=== PATIENT | female | born 1945 | race Caucasian/White ===

== ENCOUNTER 2017-01-29 01:17 | Emergency (ER) | payer MEDICARE, MEDICAID ==
[~2017-01-29] VITALS: Ht 160 cm; Wt 75.0 kg
[~2017-01-29 01:17] MED LIST: AMLO5TAB2 PO; HYDR-4003 PO; HYDR25SU10 RC; HYDR25TA4 PO; LOPE2CAP PO; METO-272 PO; OMEP20CA11 PO; SIMV20TA4 PO; VALS80TA2 PO
[2017-01-29 01:29] VITALS: BP 170/70; PULSE 83; RESP 24; O2SAT 100
--- NOTE | 2017-01-29 01:38 | ED.REPORT ---
HPI-General Illness Date of Service Jan 29, 2017 ED Provider: Codey Romo MD A 72 year old female with a history of hypertension presents to the ED complaining of "burning" left-sided abdominal pain. The pain began several days ago and radiates into her back. She has been seen twice previously for these symptoms. The pt admits to nausea denies productive cough. Nursing Notes Stated Complaint: LEFT SIDED ABDOMINAL PAIN Chief Complaint: Chest Pain Nursing Notes Reviewed: Yes Allergies: Coded Allergies: ibuprofen (Verified Allergy, Intermediate, HIVES, 01/29/17) Scheduled Amlodipine (Amlodipine) 5 Mg Tablet 5 MG PO DAILY Hydrochlorothiazide (Hydrochlorothiazide) 25 Mg Tablet 25 MG PO DAILY Hydrocortisone Acetate (Anucort-Hc) 25 Mg Supp.rect 25 MG RC DAILY Loperamide (Loperamide) 2 Mg Capsule 2 MG PO Q4H Metoprolol Succinate ER (Metoprolol Succinate ER) 50 Mg Tab.er.24h 100 MG PO DAILY Omeprazole (Omeprazole) 20 Mg Capsule.dr 20 MG PO BID Simvastatin (Simvastatin) 20 Mg Tablet 20 MG PO HS Valsartan (Diovan) 80 Mg Tablet 80 MG PO DAILY Scheduled PRN Hydrocodone-Acetaminophen 5-325 mg (Hydrocodone-Acetaminophen 5-325 mg) 1 Each Tablet 1 TABLET PO Q4H PRN PRN For Pain Hydrocodone-Acetaminophen 5-325 mg (Hydrocodone-Acetaminophen 5-325 mg) 1 Each Tablet 1 TABLET PO QID PRN PRN For Pain Naproxen (Naproxen) 375 Mg Tablet.dr 375 MG PO BID PRN PRN For Pain Ondansetron ODT (Ondansetron ODT) 8 Mg Tab.rapdis 8 MG PO QID PRN PRN For Nausea General Time Seen by MD: 01:37 Chief Complaint Abdominal pain Hx Obtained From: Patient, Son Arrived By: Walk-in Sudden in Onset?: No Symptom Duration: Since onset Recent Healthcare: Recent doctor visit Similar Sx Previous: No Past Medical History Past Medical History Ulcer Reports: Hypertension Past Surgical History Reports: Appendectomy Smoking History Never Smoker Social History Alcohol Use: Denies alcohol use Drug Use: Denies drug use Other Social History: Good social support, Local resident Ambulatory Status Independent Review of Systems Full Review of Systems Respiratory: Denies: Non-productive cough, Prod cough, clear, Shortness of breath GI: Reports: Abdominal pain, Nausea Musculoskeletal: Reports: Back pain, Denies: Neck pain Skin: Denies Rash Complete sys rev & neg: except as marked. Physical Exam Vital Signs Vital Signs Date Time Temp Pulse Resp B/P Pulse Ox O2 Delivery O2 Flow Rate FiO2 01/29/17 04:47 69 19 157/61 99 Room Air 01/29/17 04:07 69 10 158/65 98 Nasal Cannula 2 01/29/17 01:29 36.6 83 24 170/70 100 Room Air Initial VS: Reviewed General/Constitutional: Awake, Alert Head / Eyes: Atraumatic, Normocephalic, PERRL, EOMI ENT: Atraumatic, Airway patent, Mucous membranes moist Neck: Atraumatic, Supple, Full range of motion Respiratory / Chest: Atraumatic, Breath sounds NL, Breath sounds = bilat splinting Cardiovascular: Heart rate NL, Regular rhythm, Heart sounds NL Abdomen: Atraumatic, Soft, Non-tender Back: Atraumatic, Full range of motion left flank tenderness to percussion Upper Extremities Upper Extremity / MS: Atraumatic, Full range of motion Lower Extremity / Pelvis / MS: Atraumatic, Full range of motion Skin: Atraumatic, Color NL, No rash, Warm, Dry Neurologic: Oriented X3, Speech NL, No motor deficits, No sensory deficits Psychiatric: Affect NL, Mood NL Interpretation & Diagnostics Interpretation & Diagnostics: CT Angiogram Chest: IMPRESSION: No acute occlusive PE. Moderate atherosclerotic disease as above. No pulmonary consolidation or mass. Other findings above. Lab Results Interpretation Result Diagram: 01/29/17 0200 01/29/17 0200 Test 01/29/17 02:00 01/29/17 03:40 White Blood Count 14.7th/mm3 (3.8-10.1) Red Blood Count 5.26mil/mm3 (3.90-5.20) Hemoglobin 15.1g/dL (12.0-15.6) Hematocrit 44.9% (35.0-46.0) Mean Corpuscular Volume 85.4fL (81-100) Mean Corpuscular Hemoglobin 28.7pg (27.0-35.0) Mean Corpuscular Hemoglobin Concent 33.6% (32.0-37.0) Red Cell Distribution Width 14.4% (12.3-15.4) Platelet Count 321bil/L (150-400) Neutrophils (%) (Auto) 71.0% (40-74) Lymphocytes (%) (Auto) 19.3% (14-46) Monocytes (%) (Auto) 8.8% (4-12) Eosinophils (%) (Auto) 0.5% (0-5) Basophils (%) (Auto) 0.2% (0-3) Prothrombin Time 10.4sec (8.1-12.5) Prothromb Time International Ratio 0.97ratio D-Dimer 1.57mg/L FEU (<0.50) Sodium Level 135mEq/L (134-144) Potassium Level 3.2mEq/L (3.5-5.2) Chloride Level 88mEq/L (97-108) Carbon Dioxide Level 25mmol/L (18-29) Blood Urea Nitrogen 34mg/dL (8-27) Creatinine 1.57mg/dL (0.57-1.00) Estimat Glomerular Filtration Rate 46mL/min (>59) Glucose Level 187mg/dL (60-99) Lactic Acid Level 1.7mmol/L (0.4-2.0) Calcium Level 9.6mg/dL (8.5-10.1) Magnesium Level 2.4mg/dL (1.6-2.6) Total Bilirubin 0.7mg/dL (0.0-1.2) Aspartate Amino Transf (AST/SGOT) 20U/L (0-50) Alanine Aminotransferase (ALT/SGPT) 21U/L (0-32) Alkaline Phosphatase 82U/L (25-165) Troponin T 0.010ug/L (0.0-0.011) Total Protein 7.9g/dL (6.4-8.4) Albumin 4.3g/dL (3.4-5.0) Lipase 30U/L (13-60) Urine Color Yellow (YELLOW) Urine Appearance Clear (CLEAR,HAZY) Urine pH 7.0 (5.0-8.0) Urine Specific Severance 1.017 (1.003-1.035) Urine Protein Negativemg/dL (NEG,TRACE) Urine Glucose (UA) Negativemg/dL (NEGATIVE) Urine Ketones 15mg/dL (NEGATIVE) Urine Occult Blood Negative (NEGATIVE) Urine Nitrite Negative (NEGATIVE) Urine Bilirubin Negative (NEGATIVE) Urine Urobilinogen Normalmg/dL (NORMAL) Urine Leukocyte Esterase Negative (NEGATIVE) Urine RBC 0-2/hpf (0-2) Urine WBC 0-5/hpf (0-5) Urine Epithelial Cells Occasional/hpf (NONE-MOD) Urine Crystals None seen (NONE SEEN) Urine Bacteria None/hpf (NONE-FEW) Urine Hyaline Casts Rare/lpf (NONE) Urine Granular Casts None seen (NONE SEEN) Urine Waxy Casts None seen (NONE SEEN) Urine Red Blood Cell Casts None seen (NONE SEEN) Urine White Blood Cell Casts None seen (NONE SEEN) Urine Mucus None seen (None Seen) Urine Trichomonas None seen (NONE SEEN) Urine Yeast None (NONE SEEN) Urinalysis Comment None Urine Culture Reflexed Not indicated ECG Interpretation ECG Interpretation: normal sinus rhythm with a rate of 85 repolarization abnormality suggests ischemia, diffuse leads inferolateral ischemia vs. strain Time: 01:48 Interpreted by: ED physician X-Ray Chest Interpretation Chest Xray Interpretation: no acute findings Interpretation / Wet Read by: Wet read ED physician CT Abd / Pelvis Interpretation IMPRESSION: Cholelithiasis. No biliary dilation. Nonobstructive left nephrolithiasis. Other findings above. Interpretation / Wet Read by: Interpret - Radiologist Re-Eval/Medical Decision Med Decision/Clinical Course 72-year-old female with left flank pain previously seen for same, presents again with ongoing pain and vomiting. Exam is notable for tenderness on that side with some punch tenderness there suggesting possible kidney stone. Urine is negative. White count is mildly elevated. Remainder of her lab are mostly unremarkable with mild hypo-kalemia, moderate azotemia that is chronic, but a positive d-dimer. Troponin was negative. EKG shows lateral strain. Plain chest x-rays negative. CT angio of chest progressing to an CT abdomen and pelvis reveals nonobstructive kidney stones but no pulmonary embolus. No other significant findings. Provided with some additional Vicodin, added Naprosyn and ondansetron to her current regimen, and continue current meds otherwise. Source of Hx: Old records Time of Eval: 02:45 Patient Status: Condition improved Re-Evaluation/Progress Note: Pt rechecked, who is resting. Plan for further treatment is discussed. Time of Eval: 04:19 Patient Status: Condition improved Re-Evaluation/Progress Note: Pt rechecked, who is resting comfortably. The diagnosis and plan for discharge are discussed. The pt understands and agrees with the plan. All questions are addressed at this time. Counseled Regarding: Diagnosis, Lab results, Need for follow-up, When/why to return to ED Discharge & Departure Primary Impression: Musculoskeletal chest pain Additional Impressions: Hypertension Vomiting Disposition: Home Discharge Condition All VS Reviewed: Yes Condition: Stable Patient Instructions: Muscle Strain (ED) Additional Instructions: Continue your currently prescribed medicines. You may add Naprosyn twice daily with food. If you are having severe pain, take the Vicodin (hydrocodone/acetaminophen) four times daily. These are constipating, sedating, and ultimately addictive if taken for a long period of time. You may take Zofran up to four times daily under your tongue if needed for nausea. We did not find any dangerous cause for ear pain tonight. We examined for clot in the lung, kidney stones or infection, dissecting aortic aneurysm, diverticulitis and other abdominal infections, and found none of these problems. I expect your pain should resolve over the next several days to weeks. Follow-up with your doctor this week or early next. Referrals: Tricia Bell PA-C (PCP) Scribe Attestation Portions of this note were transcribed by Cisco Garrett. I, Dr. Romo personally performed the history, physical exam and medical decision-making; I reviewed and confirmed the accuracy of the information in the transcribed note. copies to: Tricia Bell PA-C, Christopher W MD Jan 29, 2017 01:38 CISCO GARRETT Jan 29, 2017 01:45
[2017-01-29] MEDS ORDERED: 0.9% Sodium Chloride 1,000 ML IV ONE ×2 (01:41→03:15)
[2017-01-29] MEDS ORDERED: Ondansetron 2 mg/mL 2 mL Inj IVPUSH ONE (01:45)
[2017-01-29 02:25] LABS: BASOPHILS % (AUTO) 0.2 % (0-3); EOSINOPHILS % (AUTO) 0.5 % (0-5); MONOCYTES % (AUTO) 8.8 % (4-12); Mean Corpuscular Hemoglobin 28.7 pg (27.0-35.0); Mean Corpuscular Volume 85.4 fL (81-100); Platelet Count 321 bil/L (150-400)
[2017-01-29] MEDS: HYDROmorphone 1 mg/mL Inj IVPUSH PRN ×2 (02:25→04:07)
[2017-01-29 02:41] LABS: INR 0.97 ratio
[2017-01-29 02:48] LABS: Magnesium 2.4 mg/dL (1.6-2.6)
[2017-01-29 03:04] LABS: TROPONIN T 0.01 ug/L (0.0-0.011)
[2017-01-29 03:55] LABS: APPEARANCE,URINE CLEAR (CLEAR,HAZY); COLOR,URINE YELLOW (YELLOW); OCCULT BLOOD,URINE NEGATIVE (NEGATIVE); UROBILINOGEN,URINE NORMAL (NORMAL)
[2017-01-29 04:07] VITALS: BP 158/65; PULSE 69; RESP 10; O2SAT 98
[2017-01-29] MEDS ORDERED: ONDA8TAB10 PO (04:29)
[2017-01-29] MEDS ORDERED: HYDR-4003 PO (04:29)
[2017-01-29] MEDS ORDERED: NAPR375T4 PO (04:29)
[2017-01-29 04:47] VITALS: BP 157/61; PULSE 69; RESP 19; O2SAT 99
--- NOTE | 2017-01-29 08:41 | DRSVH ---
PROCEDURE: X-RAY CHEST ONE VIEW, PORTABLE ([id number]) INDICATIONS: LOWER LEFT LATERAL CHEST PAIN, FLANK PAIN TECHNIQUE: One view of the chest was acquired. COMPARISON: [facility], CT, CT ANGIO CHEST PE, 01/29/2017, 3:29. [facility], CR, CHEST 1VW (PORTABLE), 06/06/2011, 15:50. FINDINGS: Surgical changes and devices: None. Lungs and pleura: No pleural effusions or pneumothorax. Lungs are clear. Mediastinum: Mediastinal contours appear normal. Heart size is normal. Bones and chest wall: No suspicious bony lesions. Overlying soft tissues appear unremarkable. IMPRESSION: No acute cardiopulmonary disease. Dictated by: Jerry Villalobos RR Interpreted: Srinivas Yang MD on 01/29/2017 at 8:37 Approved by: Srinivas Yang M.D. on 01/29/2017 at 8:39
--- NOTE | 2017-01-29 08:55 | DRSVH ---
PROCEDURE: CT ANGIO CHEST PULMONARY EMBOLISM ([id number]) INDICATIONS: chest pain, elevated dimer TECHNIQUE: After the administration of intravenous contrast, 2 mm thick sections acquired from the pulmonary api marlen to the posterior costophrenic angles. 3-dimensional maximum intensity projection (MIP) coronal a nd sagittal reformats were then acquired through the thorax. For radiation dose reduction, the follo wing was used: automated exposure control, adjustment of mA and/or kV according to patient size. COMPARISON: [facility], CT, ABD/PELVIS W/CON (PNL), 11/07/2013, 3:05. FINDINGS: Image quality: There is mild motion artifact. Pulmonary arteries: Pulmonary arteries are normal in size, and demonstrate no intraluminal filling d efects to suggest central pulmonary embolism. Lungs and pleura: Mild dependent atelectasis is present bilaterally. There is linear scarring or at electasis within the medial right middle lobe and inferior left lingula. No pleural effusions or pne umothorax. Central and peripheral airways are patent. Mediastinum: Heart size is normal, without pericardial effusion. There is coronary arterial atheros clerotic vascular calcification. No mediastinal or hilar adenopathy. Thoracic aorta is normal in ca liber and enhancement. Esophagus is normal in caliber, without hiatal hernia. Bones and chest wall: No suspicious bony lesions. Ribs and thoracic spine appear intact throughout. Thyroid gland demonstrates a small calcified focus within the inferior right thyroid lobe. No axil maribell or supraclavicular adenopathy. Abdomen: Visualized upper abdomen demonstrates mild aneurysmal dilatation of the suprarenal abdomina l aorta measuring up to 3.5 cm, stable in size compared to the prior study of 11/07/13. There is scatt ered eccentric atherosclerotic plaque. IMPRESSION: 1. No evidence of pulmonary embolism. 2. No acute consolidation. 3. Stable mild aneurysmal dilatation of the visualized abdominal aorta. Dictated by: Ruddy Salter M.D. on 01/29/2017 at 8:39 Approved by: Ruddy Salter M.D. on 01/29/2017 at 8:53
--- NOTE | 2017-01-29 09:11 | DRSVH ---
PROCEDURE: CT ABDOMEN AND PELVIS WITH CONTRAST ([id number]) INDICATIONS: left flank pain TECHNIQUE: After the administration of oral and intravenous contrast, 5 mm thick sections acquired from the diap hragms to the symphysis. 5 mm thick coronal and sagittal reformats were performed. For radiation do se reduction, the following was used: automated exposure control, adjustment of mA and/or kV accordi ng to patient size. COMPARISON: [facility], CT, ABD/PELVIS W/CON (PN), 11/07/2013, 3:05. FINDINGS: Image quality: Excellent. ABDOMEN: Lung bases: There is mild dependent atelectasis. Heart size is normal. There is prominent coronary arterial vascular calcification. Solid organs: Liver and spleen are normal in size and enhancement. Gallbladder demonstrates small d ependent calcified gallstones without wall thickening or pericholecystic fluid. Biliary system is no n-dilated. Pancreas enhances normally. No adrenal nodules. Kidneys demonstrate no hydronephrosis. There are small hypodensities in the kidneys likely representing cysts. A small nonobstructing ston e is present within the left kidney measuring up to 2 mm. Peritoneum and bowel: Stomach, small bowel, and colon loops are normal in caliber and wall thickness . No pericecal inflammatory changes to suggest appendicitis. There is mild colonic diverticulosis w ithout acute diverticulitis. No free fluid or air. Nodes and vessels: No retroperitoneal or mesenteric adenopathy. There is mild aneurysmal dilatation of the suprarenal abdominal aorta measuring up to 3.8 cm at the diaphragmatic hiatus slightly increa sed from 3.6 cm previously. Miscellaneous: No ventral hernias. PELVIS: Genitourinary: Bladder wall thickness is normal. There is a curvilinear intrauterine device again n oted. Miscellaneous: No inguinal hernias or adenopathy. Bones: No suspicious bony lesions. No vertebral body compression fractures. IMPRESSION: 1. Left nephrolithiasis with a 2 mm stone but no evidence of obstructive uropathy. 2. Cholelithiasis with acute cholecystitis. 3. 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 Dictated by: Ruddy Salter M.D. on 01/29/2017 at 9:03 Approved by: Ruddy Salter M.D. on 01/29/2017 at 9:09
[2017-01-30] MEDS ORDERED: OXYC15TA79 PO (02:54)
[2017-01-30] MEDS ORDERED: LIDO700A6 TP (02:54)
== END 2017-01-29 04:48 | disposition home or self-care (01) ==
LOC: SED 01:17
DX: R07.89 Other chest pain (principal); I10 Essential (primary) hypertension; R11.10 Vomiting, unspecified; Z88.6 Allergy status to analgesic agent
CPT/HCPCS: 36415; 71010; 71275; 74177; 80053; 81000; 83605; 83690; 83735; 84484; 85025; 85378; 85610; 93005; 96361; 96374; 96375; 99285; J1170; J2405; J7030; Q9967

== ENCOUNTER 2017-01-30 00:40 | Emergency (ER) | payer MEDICARE, MEDICAID ==
[~2017-01-30] VITALS: Ht 160 cm; Wt 75.0 kg
[~2017-01-30 00:40] MED LIST changes: -METO-272 PO; +METO-369 PO; +NAPR375T4 PO; +ONDA8TAB10 PO
[2017-01-30 00:45] VITALS: BP 151/78; PULSE 68; RESP 22; O2SAT 99
--- NOTE | 2017-01-30 01:02 | ED.REPORT ---
HPI-General Illness Date of Service Jan 30, 2017 ED Provider: Codey Romo MD A 72 year old female with a history of hypertension presents to the ED complaining of left-sided back pain. The pain radiates through the left side of her back, ribs and abdomen. The pain was seen in the ED last night for similar symptoms. She has filled the pain medications that were prescribed last night but these have not resolved her symptoms. The pt admits to nausea, weakness and decreased appetite. Nursing Notes Stated Complaint: ABDOMINAL PAIN Chief Complaint: Female Abdominal Pain Nursing Notes Reviewed: Yes Allergies: Coded Allergies: ibuprofen (Verified Allergy, Intermediate, HIVES, 01/30/17) Scheduled Amlodipine (Amlodipine) 5 Mg Tablet 5 MG PO DAILY Hydrochlorothiazide (Hydrochlorothiazide) 25 Mg Tablet 25 MG PO DAILY Hydrocortisone Acetate (Anucort-Hc) 25 Mg Supp.rect 25 MG RC DAILY Lidocaine (Lidoderm) 700 Mg Adh..patch 1 PATCH TP UD Loperamide (Loperamide) 2 Mg Capsule 2 MG PO Q4H Metoprolol Succinate ER (Metoprolol Succinate ER) 50 Mg Tab.er.24h 100 MG PO DAILY Omeprazole (Omeprazole) 20 Mg Capsule.dr 20 MG PO BID Simvastatin (Simvastatin) 20 Mg Tablet 20 MG PO HS Valsartan (Diovan) 80 Mg Tablet 80 MG PO DAILY Scheduled PRN Hydrocodone-Acetaminophen 5-325 mg (Hydrocodone-Acetaminophen 5-325 mg) 1 Each Tablet 1 TABLET PO Q4H PRN PRN For Pain Hydrocodone-Acetaminophen 5-325 mg (Hydrocodone-Acetaminophen 5-325 mg) 1 Each Tablet 1 TABLET PO QID PRN PRN For Pain Naproxen (Naproxen) 375 Mg Tablet.dr 375 MG PO BID PRN PRN For Pain Ondansetron ODT (Ondansetron ODT) 8 Mg Tab.rapdis 8 MG PO QID PRN PRN For Nausea oxyCODONE (oxyCODONE) 15 Mg Tablet 15 MG PO Q4H PRN PRN For Pain General Time Seen by MD: 01:01 Chief Complaint Back pain Hx Obtained From: Patient, Son Arrived By: Walk-in Sudden in Onset?: No Symptom Duration: Since onset Recent Healthcare: Recent doctor visit Similar Sx Previous: Yes Past Medical History Past Medical History Ulcer Reports: Hypertension Past Surgical History Reports: Appendectomy Smoking History Never Smoker Social History Alcohol Use: Denies alcohol use Drug Use: Denies drug use Other Social History: Good social support, Local resident Ambulatory Status Independent Review of Systems decreased appetite rib pain Full Review of Systems Constitutional: Reports: Weakness - generalized Respiratory: Denies: Non-productive cough, Shortness of breath GI: Reports: Abdominal pain, Nausea, Denies: Vomiting Musculoskeletal: Reports: Back pain, Denies: Neck pain Skin: Denies Rash Complete sys rev & neg: except as marked. Physical Exam Vital Signs Vital Signs Date Time Temp Pulse Resp B/P Pulse Ox O2 Delivery O2 Flow Rate FiO2 01/30/17 03:30 36.1 59 18 158/69 98 Room Air 01/30/17 00:45 36.2 68 22 151/78 99 Room Air Initial VS: Reviewed General/Constitutional: Awake, Alert Head / Eyes: Atraumatic, Normocephalic, PERRL, EOMI ENT: Atraumatic, Airway patent, Mucous membranes moist Neck: Atraumatic, Supple, Full range of motion Respiratory / Chest: Atraumatic, Breath sounds NL, Breath sounds = bilat, No respiratory distress Cardiovascular: Heart rate NL, Regular rhythm, Heart sounds NL Abdomen: Atraumatic, Soft, Non-tender Back: Full range of motion superficial left flank tenderness Upper Extremities Upper Extremity / MS: Atraumatic, Full range of motion Lower Extremity / Pelvis / MS: Atraumatic, Full range of motion Skin: Atraumatic, Color NL, No rash, Warm, Dry Neurologic: Oriented X3, Speech NL, No motor deficits, No sensory deficits Psychiatric: Affect NL, Mood NL Interpretation & Diagnostics Lab Results Interpretation Result Diagram: 01/30/17 0154 01/30/17 0154 Test 01/30/17 01:54 01/30/17 02:08 White Blood Count 11.7th/mm3 (3.8-10.1) Red Blood Count 4.81mil/mm3 (3.90-5.20) Hemoglobin 14.0g/dL (12.0-15.6) Hematocrit 41.3% (35.0-46.0) Mean Corpuscular Volume 85.9fL (81-100) Mean Corpuscular Hemoglobin 29.1pg (27.0-35.0) Mean Corpuscular Hemoglobin Concent 33.9% (32.0-37.0) Red Cell Distribution Width 14.5% (12.3-15.4) Platelet Count 278bil/L (150-400) Neutrophils (%) (Auto) 68% (40-74) Lymphocytes (%) (Auto) 21% (14-46) Monocytes (%) (Auto) 9% (4-12) Eosinophils (%) (Auto) 1% (0-5) Basophils (%) (Auto) 0% (0-3) Band Neutrophils % 1% (1-5) Hematology Comments Prothrombin Time 10.5sec (8.1-12.5) Prothromb Time International Ratio 0.98ratio Sodium Level 135mEq/L (134-144) Potassium Level 3.5mEq/L (3.5-5.2) Chloride Level 94mEq/L (97-108) Carbon Dioxide Level 22mmol/L (18-29) Blood Urea Nitrogen 17mg/dL (8-27) Creatinine 1.16mg/dL (0.57-1.00) Estimat Glomerular Filtration Rate 66mL/min (>59) Glucose Level 142mg/dL (60-99) Calcium Level 9.0mg/dL (8.5-10.1) Magnesium Level 2.2mg/dL (1.6-2.6) Total Bilirubin 0.7mg/dL (0.0-1.2) Aspartate Amino Transf (AST/SGOT) 18U/L (0-50) Alanine Aminotransferase (ALT/SGPT) 16U/L (0-32) Alkaline Phosphatase 71U/L (25-165) Troponin T 0.010ug/L (0.0-0.011) Total Protein 7.3g/dL (6.4-8.4) Albumin 4.0g/dL (3.4-5.0) Lipase 32U/L (13-60) Lactic Acid Level 1.2mmol/L (0.4-2.0) ECG Interpretation ECG Interpretation: normal sinus rhythm with a rate of 59 lateral ischemic changes improved from yesterday Time: 01:41 Interpreted by: ED physician Re-Eval/Medical Decision Med Decision/Clinical Course 72-year-old presents again with very focal and elicitable back pain over the ribs. It is quite tender to palpation. There is no rash or suggestion of herpes zoster. Review of her CT does not reveal any obvious abnormality although there is some suggestion of a possible nondisplaced rib fracture. Lab evaluation is again negative. No additional imaging indicated. She is provided with oxycodone at a higher dose and appears to be more comfortable. Discharged in stable condition. Source of Hx: Old records Time of Eval: 02:46 Patient Status: Condition improved Re-Evaluation/Progress Note: Pt rechecked, whose pain has improved. The diagnosis and plan for discharge are discussed. The pt understands and agrees with the plan. All questions are addressed at this time. Counseled Regarding: Diagnosis, Lab results, Need for follow-up, When/why to return to ED Discharge & Departure Primary Impression: Back pain Back pain location: back pain in unspecified location Chronicity: acute Back pain laterality: left Qualified Code: M54.9 - Dorsalgia, unspecified Additional Impression: Rib fracture Encounter type: initial encounter Rib fracture type: single rib Fracture type: closed Laterality: left Qualified Code: S22.32XA - Fracture of one rib, left side, initial encounter for closed fracture Disposition: Home Discharge Condition All VS Reviewed: Yes Condition: Stable Patient Instructions: Back Pain (ED), Rib Fracture (ED) Additional Instructions: Begin lidocaine patch over the area, twelve hours a day on, twelve hours a day off. Begin oxycodone in place of hydrocodone for pain relief. Call your doctor today for follow-up today. Return if any breathing issues or other new symptoms develop. Referrals: Tricia Bell PA-C (PCP) Scribe Attestation Portions of this note were transcribed by Cisco Garrett. I, Dr. Romo personally performed the history, physical exam and medical decision-making; I reviewed and confirmed the accuracy of the information in the transcribed note. copies to: Tricia Bell PA-C, Christopher W MD Jan 30, 2017 01:02 CISCO GARRETT Jan 30, 2017 01:19
[2017-01-30] MEDS ORDERED: 0.9% Sodium Chloride 1,000 ML IV ONE (01:03)
[2017-01-30] MEDS ORDERED: hydrOXYzine Inj 50 MG/1 mL SDV IM ONE ×2 (01:15→02:15)
[2017-01-30 02:05] LABS: Mean Corpuscular Hemoglobin 29.1 pg (27.0-35.0); Mean Corpuscular Volume 85.9 fL (81-100); Platelet Count 278 bil/L (150-400)
[2017-01-30 02:20] LABS: NEUTROPHILS % (AUTO) 68 % (40-74)
[2017-01-30 02:21] LABS: BASOPHILS % (AUTO) 0 % (0-3); EOSINOPHILS % (AUTO) 1 % (0-5); MONOCYTES % (AUTO) 9 % (4-12)
[2017-01-30 02:32] LABS: INR 0.98 ratio
[2017-01-30 02:47] LABS: Magnesium 2.2 mg/dL (1.6-2.6); TROPONIN T 0.01 ug/L (0.0-0.011)
[2017-01-30] MEDS ORDERED: OXYC15TA79 PO (02:54)
[2017-01-30] MEDS ORDERED: LIDO700A10 TP (02:54)
[2017-01-30] MEDS ORDERED: Lidocaine Topical 5% Patch TOPICAL SCH (02:55)
[2017-01-30] MEDS ORDERED: Lidocaine Topical 5% Patch TOPICAL ONE (02:55)
[2017-01-30 03:30] VITALS: BP 158/69; PULSE 59; RESP 18; O2SAT 98
== END 2017-01-30 03:31 | disposition home or self-care (01) ==
LOC: SED 00:40
DX: S22.32XA Fracture of one rib, left side, initial encounter for closed fracture (principal); M54.9 Dorsalgia, unspecified; X58.XXXA Exposure to other specified factors, initial encounter; Y92.9 Unspecified place or not applicable; Y93.9 Activity, unspecified; Y99.9 Unspecified external cause status; R10.9 Unspecified abdominal pain; R11.0 Nausea; I10 Essential (primary) hypertension; Z88.6 Allergy status to analgesic agent
CPT/HCPCS: 36415; 80053; 83605; 83690; 83735; 84484; 85025; 85610; 93005; 96360; 96372; 99285; J3410; J7030